=== PATIENT | female | born 1960 | race Caucasian/White ===

== ENCOUNTER → 2017-04-28 | Outpatient (CLI) | payer OTHER, SELFPAY ==
--- NOTE | 2017-04-28 19:38 | REP ---
MAXILLOFACIAL CT WITHOUT CONTRAST: HISTORY: Chronic sinusitis. The sinuses are clear. The ostiomeatal units are patent. The middle and inferior nasal turbinates are partially paradoxical. There is very minimal deviation of the nasal septum to the right. The cribriform plate, medial tran of the orbits and optic canals are intact. The carotid canals form a segment of the posterolateral tran of the sphenoid sinus. IMPRESSION: There is no acute or chronic sinusitis. Signed by Gerard Lutz MD 04/28/2017 07:38 P
== END ==
LOC: M RAD 17:53
PROVIDERS: ATTEND Otolaryngology
DX: J32.4 Chronic pansinusitis (principal)

== ENCOUNTER → 2019-02-07 | Outpatient (REF) | payer OTHER | LOC: M LAB REF 16:42 | PROVIDERS: ATTEND Nurse Practitioner Adult Health | DX: J02.9 Acute pharyngitis, unspecified (principal) ==

== ENCOUNTER → 2019-04-21 | Outpatient (REF) | payer OTHER | LOC: M LAB REF 12:27 | PROVIDERS: ATTEND Physician Assistant | DX: J02.9 Acute pharyngitis, unspecified (principal) ==

== ENCOUNTER 2020-04-29 04:35 | Inpatient (IN) | payer OTHER ==
[~2020-04-29] VITALS: Ht 162.6 cm; Wt 74.9 kg
[2020-04-29] MEDS ORDERED: AMBI5TAB PO (04:44)
[2020-04-29] MEDS ORDERED: BIOT10TA2 PO (04:44)
[2020-04-29] MEDS ORDERED: MULTCAP PO (04:44)
[2020-04-29] MEDS ORDERED: vit b-12 PO (04:44)
[2020-04-29] MEDS ORDERED: TOPI50TA9 PO (04:44)
[2020-04-29] MEDS ORDERED: CETI10CH PO (04:44)
[2020-04-29] MEDS ORDERED: MELA5CAP2 PO (04:44)
[2020-04-29] MEDS ORDERED: CYCL-707 PO (04:44)
[2020-04-29] MEDS ORDERED: CYMB60CA3 PO (04:44)
[2020-04-29] MEDS ORDERED: PHEN30CA2 PO (04:44)
[2020-04-29] MEDS ORDERED: ALLO100T PO (04:44)
[2020-04-29] MEDS ORDERED: MORPHINE 4 MG/ML 1ML VIAL/SYRINGE (J2270) As Ordered ONE (05:50)
[2020-04-29] MEDS ORDERED: ONDANSETRON 4MG/2ML VIAL IV ONE (06:00)
--- NOTE | 2020-04-29 06:07 | HPEPDOC ---
[facility] Medical History & Physical Date of Admission Apr 29, 2020 Date of Service: Apr 29, 2020 Other Provider Kimo Lion Attending Physician: RICARDO DENNY MD History and Physical TIME OF SERVICE: 615am CHIEF COMPLAINT: pain HISTORY OF PRESENT ILLNESS: This 59 yr old F was taking her dogs for a walk this morning when her lab saw a cat and proceeded to run her over while trying to pursue the cat; she walked home and her drove her to the ER because she developed left sided, sharp hip pain that improved a bit after receiving morphine. She denied having chest pain, dizziness or palpitations prior to the fall. At the time of my exam she developed mid 3/10 sharp chest pain which she has never had before. Per the xray showed a left non-displaced intertrochanteric hip fx. REVIEW OF SYSTEMS: 12 point review of systems negative except as listed in HPI PAST MEDICAL/ SURGICAL HISTORY: Asthma ? Gout L kidney atrophy Endometriosis Hx of DM, HTN and Dyslipidemia prior to gastric bypass 10 yrs ago Hysterectomy to manage endometriosis ELIZABETH and LSO Right oophorectomy Appendectomy Lysis of adhesions Tonsillectomy SOCIAL HISTORY: -tobacco /- alcohol FAMILY HISTORY: COPD DM HTN CAD ALLERGIES: Please see below. HOME MEDICATIONS: Please see below. PHYSICAL EXAMINATION: Vital Signs Date Time Temp Pulse Resp B/P (MAP) Pulse Ox O2 Delivery O2 Flow Rate FiO2 04/29/20 04:35 97.6 67 18 120/68 (85) 100 Room Air GENERAL APPEARANCE: well-nourished / well developed / NAD HEENT: EOMI / MMM&P CARDIOVASCULAR: RRR/ NMRG LUNGS: CTAB on RA ABDOMEN: soft & NT MUSCULOSKELETAL: YFN in upper extremities INTEGUMENT: not flushed / no generalized pallor NEUROLOGICAL: CN 2-12 intact /speech not dysarthric PSYCHIATRIC: A&Ox 3 LABORATORY DATA: 04/29/20 06:18 IMAGING: Chest xray report pending Hip xray report pending MICROBIOLOGY: Please see below. ASSESSMENT: is a 59 yr old w a hx of gout who had a fall after her dog ran her over resulting a in a left hip fx. PLAN: 1Left hip fx 2/2 mechanical fall Plan: admit to medical floor / NPO, IVF, morphine w bowel regimen, Ortho consult, PT/OT / day time team to f/u final chest xray and hip xray reports 2. Chest Pain possibly 2/2 anxiety her had a stroke recently and has several follow up appointments this week EKG & Trop unremarkable Plan: f/u 2 more trops 3. Gout Plan: allopurinol 4. Perioperative Eval She walks her dogs and is very active at her job (works at [employer] RCRI score = 0 = no additional testing needed prior to proceeding with surgery. DVT px w SCDS Dispo: likely transfer to ARU after more than 2 midnights stay Home Medications Scheduled Allopurinol (Allopurinol) 100 Mg Tablet, 100 MG PO DAILY Biotin (Biotin) 10 Mg Tablet, 10 MG PO DAILY Cetirizine HCl (Cetirizine HCl) 10 Mg Tab.chew, 10 MG PO QPM Cyclobenzaprine HCl (Cyclobenzaprine HCl) 10 Mg Tablet, 10 MG PO TID Duloxetine Hcl (Cymbalta) 60 Mg Capsule.dr, 60 MG PO QHS TAKE WITH 30MG TO EQUAL 90MG Duloxetine Hcl (Duloxetine HCl) 30 Mg Capsule.dr, 30 MG PO QHS TAKE WITH 60MG TO EQUAL 90MG Multivitamin (Multivitamins) 1 Each Capsule, 2 CAP PO DAILY Phentermine HCl (Phentermine HCl) 30 Mg Capsule, 30 MG PO DAILY Rivaroxaban (Xarelto) 10 Mg Tablet, 10 MG PO DAILY Topiramate (Topiramate) 50 Mg Tablet, 50 MG PO DAILY [vit b-12] , 500 MCG PO DAILY Scheduled PRN Melatonin (Melatonin) 5 Mg Capsule, 5 MG PO QPM PRN for SLEEP Oxycodone HCl/Acetaminophen (Percocet 5-325 mg Tablet) 1 Each Tablet, 1 TAB PO Q4H PRN for PAIN Zolpidem Tartrate (Ambien) 5 Mg Tablet, 5 MG PO QPMP PRN for sleep Allergies Coded Allergies: No Known Allergies (Unverified , 04/29/20) A-FIB/CHADSVASC A-FIB History Current/History of A-Fib/PAF?: No Current PO Anticoag Therapy: No RICARDO DENNY MD Apr 29, 2020 06:07
[2020-04-29] MEDS ORDERED: LR 1,000 ML IV SCH ×3 (06:15→17:45)
[2020-04-29] MEDS ORDERED: DULO30CA9 PO (06:27)
[2020-04-29] MEDS ORDERED: SENOKOT S TAB PO PRN (06:30)
[2020-04-29] MEDS ORDERED: MIRALAX *UNIT DOSE* 17GM PACKET PO PRN (06:30)
[2020-04-29 06:37] LABS: BASO % 0.4 % (0.0-1.0); EOS # 0.1 10^3/uL (0.0-0.5); EOS % 1.8 % (0.0-3.0); HEMATOCRIT 38.1 % (36.0-47.0); HEMOGLOBIN 12.3 g/dl (12.0-15.5); LYMPH # 1.7 10^3/uL (1.5-5.0); LYMPH % 23.5 % (24.0-44.0); MEAN CORPUSCULAR HGB CONC 32.3 g/dl (32.0-36.5); MONO # 0.7 10^3/uL (0.0-0.8); MONO % 8.8 % (0.0-5.0); NEUTROPHILS # 4.8 10^3/uL (1.5-8.5); NEUTROPHILS % 64.7 % (36.0-66.0); PLATELET COUNT, AUTOMATED 255 10^3/uL (150-450); RED BLOOD COUNT 3.97 10^6/uL (4.00-5.40); WHITE BLOOD COUNT 7.4 10^3/uL (4.0-10.0)
[2020-04-29 06:40] LABS: INR 0.89; PROTHROMBIN TIME 12.3 SECONDS (11.8-14.0)
[2020-04-29 06:41] LABS: PARTIAL THROMBOPLASTIN TIME 24.4 SECONDS (25.0-38.4)
[2020-04-29] MEDS: MORPHINE 4 MG/ML 1ML VIAL/SYRINGE (J2270) IV PRN ×2 (06:43→08:20)
[2020-04-29 06:53] LABS: BLOOD UREA NITROGEN 16 MG/DL (7-18); CALCIUM LEVEL 9.1 MG/DL (8.8-10.2); CARBON DIOXIDE LEVEL 28 MEQ/L (21-32); CHLORIDE LEVEL 111 MEQ/L (98-107); CREATININE FOR GFR 0.84 MG/DL (0.55-1.30); GLOMERULAR FILTRATION RATE > 60.0 (>45); GLUCOSE, FASTING 107 MG/DL (70-100); POTASSIUM SERUM 3.7 MEQ/L (3.5-5.1); SODIUM LEVEL 143 MEQ/L (136-145); TROPONIN I < 0.02 NG/ML (< 0.10)
[2020-04-29] MEDS ORDERED: ONDANSETRON 4MG/2ML VIAL IV PRN ×2 (07:00→16:45)
[2020-04-29] MEDS ORDERED: ceFAZolin SOD 2 GM in IV 1 EA IV ONE (08:00)
[2020-04-29] MEDS: CYCLOBENZAPRINE 10MG TABLET PO SCH ×3 (09:00→20:31)
[2020-04-29] MEDS ORDERED: PHENTERMINE 30 MG PO SCH (09:00)
[2020-04-29 09:30] VITALS: BP 115/74
[2020-04-29] MEDS: allopurinoL 100 MG TAB PO SCH (11:18)
[2020-04-29] MEDS ORDERED: BUPIVACAINE/EPIN 0.25% 30 ML VIAL As Ordered ONE (12:02)
[2020-04-29] MEDS ORDERED: ceFAZolin 1GM VIAL (J0690 PER 500MG) As Ordered ONE (12:02)
[2020-04-29] MEDS: MORPHINE 2 MG/ML 1ML VIAL (J2270) IV PRN (12:25)
[2020-04-29] MEDS ORDERED: ROCURONIUM BROMIDE 50 MG/5 ML VIAL As Ordered ONE (12:32)
[2020-04-29] MEDS ORDERED: propofoL 200 MG/20 ML VIAL As Ordered ONE (12:32)
[2020-04-29] MEDS ORDERED: LIDOCAINE 2% 100MG/5ML SDV (FOR ANES.) As Ordered ONE (12:32)
[2020-04-29] MEDS ORDERED: dexameTHASONE 4 MG/ML 1ML VIAL (J1100 PER 1MG) As Ordered ONE (12:32)
[2020-04-29] MEDS ORDERED: fentaNYL 250 MCG/5 ML INJECTION (J3010) As Ordered ONE (12:33)
[2020-04-29] MEDS ORDERED: MIDAZOLAM INJ 2MG/2ML VIAL (J2250 PER 1MG) As Ordered ONE (12:33)
[2020-04-29] MEDS ORDERED: SEVOFLURANE INHAL SOLN 250 ML BTL As Ordered ONE (12:36)
[2020-04-29] MEDS ORDERED: ceFAZolin 2 GM/D5W 50 ML IV BAG (J0690 PER 500MG) As Ordered ONE (13:26)
[2020-04-29] MEDS ORDERED: BUPIVACAINE HCL 0.5% 30 ML VIAL As Ordered ONE (13:45)
--- NOTE | 2020-04-29 14:33 | IPNPDOC ---
Text Note Date of Service The patient was seen on 04/29/20. NOTE HPI: Patient is a 59 yo F seen in the ED awaiting admission for a fractured left hip. Patient was brought to the ED early this morning by her after an incident while walking her dog where she was pulled to the ground and dragged by the dog. Patient described hip pain that was worse upon trying to ambulate. SUBJECTIVE: Pt states she is comfortable and her pain is tolerable now that she has received pain medication. Abrasions noted on her right palm, left shoulder, and left elbow. Patient denies any chest pain, fever, chills, nausea, vomiting, pain in any other extremity, head trauma, loss of consciousness, or headache. OBJECTIVE: VITAL SIGNS: please see below GENERAL: Patient appears lying in bed, pleasant, and in no acute distress. HEENT: NC, AT, EOMI, no scleral icterus, no pharyngeal erythema, mucous membranes moist NECK: no lymphadenopathy or JVD appreciated CV: RRR, normal S1 and S2, no murmurs, gallops, or rubs. RESP: CTAB with full breath sounds. No wheezes, crackles, or rhonchi. ABDOMEN: soft, non tender, non distended, bowel sounds present. EXTREMITIES: abrasions on right palm, left shoulder, and left elbow, but non- tender to palpation. Full ROM in affected joints. Pain in left hip, no swelling or edema in any extremity, pedal pulses +2/4 bilaterally LABORATORY: please see below MICROBIOLOGY: please see below IMAGING: ASSESSMENT/PLAN: Mrs. Goodson is a 59 yr old female without significant PMHx who presented with acute left hip pain and found to have a left nondisplaced intertrochanteric hip fx. #. Left nondisplaced intertrochanteric hip fx -Follow as per surgery and ortho -Activity, pain control as per ortho -RCRI score of 0, no other testing required. Patient able to complete 4 mets. No history of adverse reactions to anesthesia. Patient is low risk for low-medium risk procedure. Patient is medically optimized. #. Transient chest pain -tropsx2 negative, no EKG changes #. Gout -Continue allopurinol #. Depression -Continue Cymbalta #. Insomnia Continue ambien #. Constipation -Pt is on Miralax and Senokot #. Msk pain -Continue home Flexeril #. Weight control -Continue topomax, Phentermine DVT Prophylaxis: Per ortho, Xarelto, TEDs VS,Fishbone, I+O VS, Fishbone, I+O Laboratory Tests 04/29/20 06:18 Vital Signs Date Time Temp Pulse Resp B/P (MAP) Pulse Ox O2 Delivery O2 Flow Rate FiO2 04/29/20 12:35 16 04/29/20 09:30 98.9 82 115/74 (88) 96 Room Air GME ATTESTATION GME ATTESTATION My faculty preceptor for this patient encounter was physically present during the encounter and was fully available. All aspects of the patient interview, examination, medical decision making process, and medical care plan development were reviewed and approved by the faculty preceptor. The faculty preceptor is aware and concurs with the plan as stated in the body of this note and will attest to such by his/her cosignature. ATTENDING NOTE Patient was seen and examined by me personally with the residents and I agree with the above assessment and plan ANDREW DENNISON S-3 Apr 29, 2020 14:33 AARON GALINDO MD May 02, 2020 13:48
[2020-04-29] MEDS ORDERED: ePHEDrine SULFATE 25 MG/5 ML(5MG/ML) SYRINGE As Ordered ONE (14:36)
[2020-04-29] MEDS ORDERED: ONDANSETRON 4MG/2ML VIAL As Ordered ONE (14:44)
[2020-04-29] MEDS ORDERED: ACETAMINOPHEN 1000MG 100ML IV BTL (OFIRMEV) (J0131 PER 10MG) As Ordered ONE (14:44)
[2020-04-29] MEDS ORDERED: PHENYLephrine HCL 500 MCG/5 ML (100MCG/ML) SYRINGE (J2370) As Ordered ONE (14:57)
[2020-04-29] MEDS ORDERED: oxyCODONE 5MG TAB As Ordered ONE ×2 (16:01→16:33)
[2020-04-29] MEDS: oxyCODONE 5MG TAB PO PRN ×2 (16:04→16:36)
[2020-04-29 16:45] VITALS: BP 130/71
[2020-04-29] MEDS ORDERED: METOCLOPRAMIDE INJ 10MG/2ML VIAL (J2765 PER 1) IV PRN (16:45)
[2020-04-29] MEDS ORDERED: fentaNYL 100 MCG/2 ML INJECTION (J3010) IV PRN (16:45)
[2020-04-29] MEDS ORDERED: MEPERIDINE INJ 25 MG/ML VIAL (J2175) IV PRN (16:45)
[2020-04-29 17:15] VITALS: BP 145/80
[2020-04-29] MEDS ORDERED: PERCOCET 5MG/325MG TAB PO PRN (17:45)
[2020-04-29 18:14] VITALS: BP 144/80
[2020-04-29 18:57] VITALS: BP 134/80
[2020-04-29 20:15] VITALS: BP 148/80
[2020-04-29] MEDS: TOPIRAMATE (TopAMAX) 25 MG TAB PO SCH (20:30)
[2020-04-29] MEDS: PERCOCET 5MG/325MG TAB PO PRN (20:30)
[2020-04-29] MEDS: CETIRIZINE (ZyrTEC) 10 MG TAB PO SCH (20:31)
[2020-04-29] MEDS: DULoxetine 30 MG CAP (CYMBALTA) PO SCH (20:31)
[2020-04-29] MEDS: ceFAZolin SOD 2 GM in IV 1 EA IV SCH (20:31)
[2020-04-29] MEDS ORDERED: DULoxetine 30 MG CAP (CYMBALTA) PO SCH (21:00)
[2020-04-30] MEDS: MORPHINE 2 MG/ML 1ML VIAL (J2270) IV PRN (01:38)
[2020-04-30 02:00] VITALS: BP 155/71
[2020-04-30] MEDS: PERCOCET 5MG/325MG TAB PO PRN ×5 (02:37→22:23)
[2020-04-30] MEDS: ceFAZolin SOD 2 GM in IV 1 EA IV SCH (05:56)
[2020-04-30 06:00] VITALS: BP 119/64
[2020-04-30 07:18] LABS: HEMATOCRIT 31.6 % (36.0-47.0); HEMOGLOBIN 10.4 g/dl (12.0-15.5); MEAN CORPUSCULAR HEMOGLOBIN 31.5 pg (27.0-33.0); MEAN CORPUSCULAR HGB CONC 32.9 g/dl (32.0-36.5); MEAN CORPUSCULAR VOLUME 95.8 fl (80.0-96.0); PLATELET COUNT, AUTOMATED 196 10^3/uL (150-450); WHITE BLOOD COUNT 9.6 10^3/uL (4.0-10.0)
[2020-04-30 07:32] LABS: BLOOD UREA NITROGEN 12 MG/DL (7-18); CALCIUM LEVEL 8.5 MG/DL (8.8-10.2); CARBON DIOXIDE LEVEL 27 MEQ/L (21-32); CHLORIDE LEVEL 107 MEQ/L (98-107); CREATININE FOR GFR 0.71 MG/DL (0.55-1.30); GLOMERULAR FILTRATION RATE > 60.0 (>45); GLUCOSE, FASTING 103 MG/DL (70-100); POTASSIUM SERUM 3.9 MEQ/L (3.5-5.1); SODIUM LEVEL 141 MEQ/L (136-145)
[2020-04-30] MEDS: allopurinoL 100 MG TAB PO SCH (08:28)
[2020-04-30] MEDS: CYCLOBENZAPRINE 10MG TABLET PO SCH ×3 (08:28→20:29)
[2020-04-30] MEDS: MOM 30ML SUSPENSION UDC PO SCH (08:28)
[2020-04-30 10:00] VITALS: BP 121/64
[2020-04-30 14:00] VITALS: BP 139/64
--- NOTE | 2020-04-30 16:00 | IPNPDOC ---
Text Note Date of Service The patient was seen on 04/30/20. NOTE HPI: Pt is a 59 yr old female admitted from the ED after suffering a left nond isplaced intertrochanteric hip fracture while walking her dog. SUBJECTIVE: Pt is s/p left hip repair surgery. She states that she is comfortable and that the surgery went well. She notes some increased musculoskeletal pain in her left arm and pectoral areas but that this is likely just the aftermath of the fall she took. Pt states that her pain is well controlled on the medications that she is currently on. Although she was started on 2L oxygen nasal cannula last night, she denies any shortness of breath or cough. The decreased O2 sats were likely due to the head of her bed being lower than her feet, creating an obstruction. She also denies any chest tightness, fever, chills, nausea, or vomiting. OBJECTIVE: VITAL SIGNS: Please see below. GENERAL: Patient appears resting comfortably in bed in no acute distress. HEENT: NC, AT, EOMI, no scleral icterus, no pharyngeal erythema, mucous membranes moist. NECK: no lymphadenopathy or JVD appreciated. CV: RRR, normal S1 and S2, no murmurs, rubs, or gallops. RESP: CTAB with full breath sounds, no wheezes, crackles or rhonchi. EXTREMITIES: Pain in left hip, no swelling or edema in any extremity, pedal pulses +2/4 bilaterally. LABORATORY: Please see below. MICROBIOLOGY: Please see below. ASSESSMENT/PLAN: Mrs. Goodson is a 59 yr old female without significant PMHx who presented with acute left hip pain and was found to have a left nondisplaced intertrochanteric hip fracture and is now s/p surgical repair. #. Left nondisplaced intertrochanteric hip fx s/p surgical repair -Follow as per surgery and ortho -Pain control as per ortho -PT/OT did not clear for discharge, they anticipate 1-2 more sessions before she will be safe to go home -Received Cefazolin as infection prophylaxis #. Transient chest pain -Trops x2 negative, no EKG changes #. Gout -Continue Allopurinol #.Depression -Continue Cymbalta #. Insomnia -Continue Ambien #.Constipation -Pt is on Miralax, Senokot, and Milk of Magnesia #. MSK pain -Continue home Flexeril #. Weight control -Continue Topamax DVT Prophylaxis: Per ortho, Xarelto and TEDs VS,Fishbone, I+O VS, Fishbone, I+O Laboratory Tests 04/30/20 06:20 Vital Signs Date Time Temp Pulse Resp B/P (MAP) Pulse Ox O2 Delivery O2 Flow Rate FiO2 04/30/20 14:17 18 04/30/20 14:00 98.9 91 139/64 (89) 99 Room Air 04/30/20 10:00 2.0 I&O- Last 24 Hours up to 6 AM 04/30/20 06:00 Intake Total 2695 ml Output Total 1300 ml Balance 1395 ml GME ATTESTATION GME ATTESTATION My faculty preceptor for this patient encounter was physically present during the encounter and was fully available. All aspects of the patient interview, examination, medical decision making process, and medical care plan development were reviewed and approved by the faculty preceptor. The faculty preceptor is aware and concurs with the plan as stated in the body of this note and will attest to such by his/her cosignature. ATTENDING NOTE Patient was seen and examined by me personally with the residents and I agree with the above assessment and plan ANDREW DENNISON OMS-3 Apr 30, 2020 16:00 AARON GALINDO MD May 02, 2020 13:49
[2020-04-30] MEDS ORDERED: PERCOCET 5MG/325MG TAB PO PRN (17:45)
[2020-04-30] MEDS ORDERED: KETOROLAC 30 MG/ML 1ML VIAL IV ONE (17:45)
[2020-04-30] MEDS: RIVAROXABAN 10 MG TAB (XARELTO) PO SCH (17:57)
[2020-04-30] MEDS: DULoxetine 30 MG CAP (CYMBALTA) PO SCH (20:28)
[2020-04-30] MEDS: CETIRIZINE (ZyrTEC) 10 MG TAB PO SCH (20:28)
[2020-04-30] MEDS: TOPIRAMATE (TopAMAX) 25 MG TAB PO SCH (20:29)
[2020-04-30 22:00] VITALS: BP 130/63
[2020-04-30] MEDS: zolPIDEM TARTRATE 5 MG TAB PO PRN (22:23)
[2020-05-01 06:00] VITALS: BP 145/87
[2020-05-01] MEDS: PERCOCET 5MG/325MG TAB PO PRN ×4 (06:52→22:20)
[2020-05-01] MEDS: CYCLOBENZAPRINE 10MG TABLET PO SCH ×3 (08:18→22:19)
[2020-05-01] MEDS: MOM 30ML SUSPENSION UDC PO SCH (08:18)
[2020-05-01] MEDS: allopurinoL 100 MG TAB PO SCH (08:18)
[2020-05-01 14:00] VITALS: BP 142/86
--- NOTE | 2020-05-01 15:13 | IPNPDOC ---
Text Note Date of Service The patient was seen on 05/01/20. NOTE HPI: Pt is a 59 yr old female admitted from the ED after suffering a left nondisplaced intertrochanteric hip fracture while walking her dog. SUBJECTIVE: No acute events overnight. Patient states pain well controlled on medication. She denies any chest pain, SOB, fever, chills, nausea, or vomiting. OBJECTIVE: VITAL SIGNS: Please see below. GENERAL: NAD HEENT: NC, AT, EOMI, no scleral icterus, no pharyngeal erythema, mucous membranes moist. NECK: no lymphadenopathy or JVD appreciated. CV: RRR, normal S1 and S2, no murmurs, rubs, or gallops. RESP: CTAB with full breath sounds, no wheezes, crackles or rhonchi. EXTREMITIES: tenderness to in left hip, no swelling or edema in any extremity LABORATORY: Please see below. MICROBIOLOGY: Please see below. ASSESSMENT/PLAN: Mrs. Goodson is a 59 yr old female without significant PMHx who presented with acute left hip pain and was found to have a left nondisplaced intertrochanteric hip fracture and is now s/p surgical repair. #. Left nondisplaced intertrochanteric hip fx s/p surgical repair on 04/29 -Follow as per surgery and ortho -Pain control as per ortho -ARU admission screening yesterday per ortho acute vs. subacute rehab. -Received Cefazolin as infection prophylaxis #. Transient chest pain -Trops x2 negative, no EKG changes #. Gout -Continue Allopurinol #.Depression -Continue Cymbalta #. Insomnia -Continue Ambien #.Constipation -Pt is on Miralax, Senokot, and Milk of Magnesia #. MSK pain -Continue home Flexeril #. Weight control -Continue Topamax DVT Prophylaxis: Per ortho, Xarelto and TEDs VS,Fishbone, I+O VS, Fishbone, I+O Vital Signs Date Time Temp Pulse Resp B/P (MAP) Pulse Ox O2 Delivery O2 Flow Rate FiO2 05/01/20 14:10 99.4 05/01/20 14:00 104 18 142/86 (104) 93 Room Air 04/30/20 10:00 2.0 I&O- Last 24 Hours up to 6 AM 05/01/20 06:00 Intake Total 1980 ml Output Total 500 ml Balance 1480 ml GME ATTESTATION GME ATTESTATION My faculty preceptor for this patient encounter was physically present during the encounter and was fully available. All aspects of the patient interview, examination, medical decision making process, and medical care plan development were reviewed and approved by the faculty preceptor. The faculty preceptor is aware and concurs with the plan as stated in the body of this note and will attest to such by his/her cosignature. ATTENDING NOTE Patient was seen and examined by me personally with the residents and I agree with the above assessment and plan ELVIS GRAVES DO May 01, 2020 15:13 AARON GALINDO MD May 02, 2020 13:51
[2020-05-01] MEDS: RIVAROXABAN 10 MG TAB (XARELTO) PO SCH (17:00)
[2020-05-01 22:00] VITALS: BP 141/82
[2020-05-01] MEDS: TOPIRAMATE (TopAMAX) 25 MG TAB PO SCH (22:18)
[2020-05-01] MEDS: CETIRIZINE (ZyrTEC) 10 MG TAB PO SCH (22:18)
[2020-05-01] MEDS: DULoxetine 30 MG CAP (CYMBALTA) PO SCH (22:19)
[2020-05-01] MEDS: zolPIDEM TARTRATE 5 MG TAB PO PRN (22:19)
[2020-05-02] MEDS: PERCOCET 5MG/325MG TAB PO PRN ×2 (05:11→11:34)
[2020-05-02 06:00] VITALS: BP 144/82
[2020-05-02] MEDS ORDERED: PERC5TAB12 PO (06:32)
[2020-05-02] MEDS ORDERED: XARE10TA PO (06:32)
[2020-05-02 07:06] LABS: HEMATOCRIT 32.9 % (36.0-47.0); HEMOGLOBIN 10.6 g/dl (12.0-15.5); MEAN CORPUSCULAR HEMOGLOBIN 30.9 pg (27.0-33.0); MEAN CORPUSCULAR HGB CONC 32.2 g/dl (32.0-36.5); MEAN CORPUSCULAR VOLUME 95.9 fl (80.0-96.0); PLATELET COUNT, AUTOMATED 201 10^3/uL (150-450); RED BLOOD COUNT 3.43 10^6/uL (4.00-5.40); WHITE BLOOD COUNT 8.3 10^3/uL (4.0-10.0)
[2020-05-02 07:35] LABS: BLOOD UREA NITROGEN 12 MG/DL (7-18); CALCIUM LEVEL 8.9 MG/DL (8.8-10.2); CARBON DIOXIDE LEVEL 27 MEQ/L (21-32); CHLORIDE LEVEL 107 MEQ/L (98-107); CREATININE FOR GFR 0.62 MG/DL (0.55-1.30); GLOMERULAR FILTRATION RATE > 60.0 (>45); GLUCOSE, FASTING 113 MG/DL (70-100); POTASSIUM SERUM 3.5 MEQ/L (3.5-5.1); SODIUM LEVEL 141 MEQ/L (136-145)
[2020-05-02] MEDS: allopurinoL 100 MG TAB PO SCH (08:44)
[2020-05-02] MEDS: MOM 30ML SUSPENSION UDC PO SCH (08:44)
[2020-05-02] MEDS: CYCLOBENZAPRINE 10MG TABLET PO SCH (08:44)
--- NOTE | 2020-05-14 16:00 | ECGEPIP ---
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
--- NOTE | 2020-05-22 10:34 | RO ---
DATE OF OPERATION: 04/29/2020 PREOPERATIVE DIAGNOSIS: Nondisplaced left proximal femur fracture. POSTOPERATIVE DIAGNOSIS: Nondisplaced left proximal femur fracture. PROCEDURE: Closed reduction, internal fixation of left femur with a cephalomedullary nail. SURGEON: Dr. Nestor Bowen ENGINEERING LABORATORY TECHNICIAN: None. ANESTHESIA: Spinal. IV FLUIDS: Lactated Ringer's. ESTIMATED BLOOD LOSS: 100 mL. IMPLANTS: Synthes TFN intermediate length with a 130 degree neck angle, and a 90 mm helical blade, and a 36 mm distal interlocking screw. CLOSURE: Ankur. INDICATIONS: The patient had suffered a mechanical fall and x-rays at [facility] revealed nondisplaced basocervical hip fracture on the left side. She was admitted to the hospitalist service and medically optimized. I discussed the risks and benefits of closed versus open reduction and internal fixation of the left femur with the patient and written informed consent was obtained. PROCEDURE: Patient was identification in the preoperative holding area. The left hip was signed. She was brought to the operating room where spinal anesthesia was induced. She was then placed supine on a well-padded radiolucent fracture table and sedation initiated. She was secured to the fracture table. The left leg was placed into the traction boot and the well leg was secured to the central beam of the fracture table well padded in a scissored position. She had an SDC on the right lower extremity for DVT prophylaxis. A preliminary timeout performed per hospital protocol. Closed reduction with manipulation was then performed by adducting and internally rotating slightly the left foot. An excellent reduction was obtained and confirmed on AP, lateral and oblique views of the large C-arm. She had received appropriate IV antibiotics within one hour of incision. The left leg was prepped and draped in the normal sterile fashion with ChloraPrep and a shower-curtain drape. A timeout was repeated. The tip of the greater trochanter was localized with fluoroscopy and then a 4 cm incision made with a 10 blade from the tip of the trochanter extending proximally. Hemostasis obtained with electrocautery. Dissection down the tensor fascia britney with curved Roberts scissors. The deep fascia was then opened carefully with the curved scissors and I was able to palpate the tip of the trochanter. A threaded guidewire was then advanced from the tip of the trochanter to the left trochanter and appropriate position confirmed on AP and lateral views of the large C-arm. The opening reamer was then used. I then irrigated. Ball-tip guidewire was placed through the opening down to the distal femur and a 12.5 mm reamer was used. I then selected a 130 degree neck angle intermediate length TFN. This was attached to the long distance operator and this was placed over the guidewire mostly by hand and then malleted to the appropriate depth. Appropriate position confirmed on AP and lateral views at the hip and tip of the nail. After malleting the racquel to the appropriate depth, the targeting arm was used to advance a threaded guidewire along the femoral neck up to the femoral head. Appropriate position was confirmed on AP and lateral views with the large C-arm. A 90 mm helical blade was found to be the most appropriate length and then the reamer was placed over the guidewire and then removed. A 90 mm helical blade was malleted over the threaded guidewire to the appropriate depth and this was in the center-center position on AP and lateral views. The nail was then locked proximally. I then drilled and placed a 36 mm distal locking screw through the static slot with the appropriate targeting arm and trocars. This had bicortical fixation. All instrumentation was removed and final x-rays at the AP and lateral at the hip, fracture, tip of the nail, and knee were obtained showing a well- reduced and fixated fracture. The incisions were then extensively irrigated and then close din a layered fashion; 0 Vicryl for deep fascia, 2-0 Vicryl and ankur. Bulky sterile dressing applied. Drapes were taken down, all counts were correct x2, complications none, and she was transferred to the PACU in stable condition. JOSHUA
--- NOTE | 2020-05-24 16:06 | REP ---
CHEST X-RAY CLINICAL: Preoperative assessment. FINDINGS: Mediastinum and cardiac silhouette normal. Lung brown clear without focal consolidation, effusion, or pneumothorax. Skeletal structures are intact. IMPRESSION: Normal chest x-ray. No acute cardiopulmonary process. MTDD
--- NOTE | 2020-05-24 16:07 | REP ---
LEFT HIP SERIES: CLINICAL: Fall. TECHNIQUE: Frontal view of the pelvis with neutral and frog lateral views of the left hip. FINDINGS: The pelvis appears intact. The left hip demonstrates no definite acute fracture or dislocation. However, a subtle nondisplaced intertrochanteric fracture cannot be excluded based on external rotation view. Clinical correlation is recommended and CT may be warranted for further investigation. IMPRESSION: Cannot definitively exclude a subtle nondisplaced intertrochanteric left hip fracture. Consider CT of the pelvis for further investigation. MTDD
--- NOTE | 2020-05-24 16:08 | REP ---
FLUORO GUIDANCE CLINICAL: Status post fracture fixation. TECHNIQUE: Intraoperative fluoroscopic imaging using portable C-arm technique. FINDINGS: Multiple images demonstrate the patient to be status post open reduction and fixation for a femoral fracture. Total fluoroscopic time 2 minutes 8 seconds. IMPRESSION: Satisfactory open reduction and fixation for femur fracture. MTDMaryam
--- NOTE | 2020-05-24 16:09 | REP ---
LEFT HIP SERIES CLINICAL: Postoperative baseline. TECHNIQUE: AP and lateral views of the left hip. FINDINGS: Satisfactory open reduction and fixation for left intertrochanteric hip fracture. Overlying postsurgical changes noted. IMPRESSION: Satisfactory open reduction and fixation. JOSHUA
== END 2020-05-02 13:41 | disposition home or self-care (01) | DRG 308 ==
LOC: M ED 04:35 → M ED INP 06:14 → ENRESERV 07:31 → M MS5PR 09:10
PROVIDERS: ADMIT Internal Medicine; ATTEND Internal Medicine
PROC: 0QS734Z Reposition Left Upper Femur with Internal Fixation Device, Percutaneous Approach (ICD-10-PCS; principal; 2020-04-29 08:49)
DX: S72.142A Displaced intertrochanteric fracture of left femur, initial encounter for closed fracture (principal); J45.909 Unspecified asthma, uncomplicated; E11.9 Type 2 diabetes mellitus without complications; M10.9 Gout, unspecified; I10 Essential (primary) hypertension; E78.5 Hyperlipidemia, unspecified; F41.9 Anxiety disorder, unspecified; Z79.899 Other long term (current) drug therapy; W01.0XXA Fall on same level from slipping, tripping and stumbling without subsequent striking against object, initial encounter; Y92.9 Unspecified place or not applicable; R07.9 Chest pain, unspecified; G47.00 Insomnia, unspecified; F32.9 Major depressive disorder, single episode, unspecified

== ENCOUNTER 2020-05-18 19:49 | Emergency (ER) | payer OTHER ==
[~2020-05-18] VITALS: Ht 162.6 cm; Wt 67.7 kg
[~2020-05-18 19:49] MED LIST: ALLO100T PO; AMBI5TAB PO; BIOT10TA2 PO; CETI10CH PO; CYCL-707 PO; CYMB60CA3 PO; DULO30CA9 PO; MELA5CAP2 PO; MULTCAP PO; PERC5TAB12 PO; PHEN30CA2 PO; TOPI50TA9 PO; XARE10TA PO; vit b-12 PO
[2020-05-18 20:45] LABS: BASO % 0.1 % (0.0-1.0); EOS % 0.3 % (0.0-3.0); HEMATOCRIT 38.5 % (36.0-47.0); HEMOGLOBIN 12.3 g/dl (12.0-15.5); LYMPH # 0.6 10^3/uL (1.5-5.0); LYMPH % 4.5 % (24.0-44.0); MEAN CORPUSCULAR HEMOGLOBIN 30.7 pg (27.0-33.0); MEAN CORPUSCULAR HGB CONC 31.9 g/dl (32.0-36.5); MONO # 0.2 10^3/uL (0.0-0.8); MONO % 1.4 % (0.0-5.0); NEUTROPHILS # 13.3 10^3/uL (1.5-8.5); NEUTROPHILS % 93.3 % (36.0-66.0); PLATELET COUNT, AUTOMATED 494 10^3/uL (150-450); RED BLOOD COUNT 4.01 10^6/uL (4.00-5.40); WHITE BLOOD COUNT 14.3 10^3/uL (4.0-10.0)
[2020-05-18] MEDS ORDERED: ACETAMINOPHEN *IV* 1,000 MG in IV 1 EA IV ONE (20:45)
[2020-05-18] MEDS ORDERED: GASTROGRAFIN SOLUTION 30ML PO SCH (20:50)
[2020-05-18 20:55] LABS: INR 0.87; PROTHROMBIN TIME 12.1 SECONDS (12.5-14.3)
[2020-05-18] MEDS ORDERED: ONDANSETRON 4MG/2ML VIAL IV ONE (21:45)
[2020-05-18] MEDS: MORPHINE 4 MG/ML 1ML VIAL/SYRINGE (J2270) IV PRN (21:50)
[2020-05-18 21:51] LABS: ALBUMIN 3.8 GM/DL (3.2-5.2); ALT/SGPT 327 U/L (12-78); BILIRUBIN,DIRECT 0.7 MG/DL (0.0-0.2); CK-MB VALUE MASS < 1.0 NG/ML (<3.6); CPK CREATINE PHOSPHOKINASE 36 U/L (26-192); LIPASE 43978 U/L (73-393); MB/CK RELATIVE INDEX 2.78 (< OR =4); TOTAL PROTEIN 7.5 GM/DL (6.4-8.2); TROPONIN I < 0.02 NG/ML (< 0.10)
[2020-05-18] MEDS ORDERED: ALBUTEROL SULFATE 2.5 MG/0.5 ML INH NEB SOLN INH ONE (22:00)
[2020-05-18] MEDS ORDERED: ISOVUE-370 76% 100ML VIAL As Ordered ONE (22:24)
--- NOTE | 2020-05-19 00:35 | REPVR ---
PROCEDURE INFORMATION: Exam: US Abdomen, Limited; Right Upper Quadrant Exam date and time: 05/18/2020 12:26 AM Age: 59 years old Clinical indication: Abdominal pain; Epigastric; Additional info: Upper abd pain, elevated liver enzymes TECHNIQUE: Imaging protocol: US abdomen. Real time ultrasound with image documentation. Limited exam focused on the right upper quadrant. COMPARISON: No relevant prior studies available. FINDINGS: Liver: No focal hepatic abnormality. Gallbladder: Distended gallbladder with multiple small gallstones. Gallbladder wall measures 2 mm. Greek Professor reports a positive ultrasonographic Mccormack's. Common bile duct: Dilated common bile duct measuring up to 9 mm. There is intrahepatic biliary dilatation. Pancreas: No gross focal abnormality involving the visualized portions of the pancreas. Right kidney: Right kidney measures 12.6 cm and is without hydronephrosis. Simple cyst at the superior right kidney measures up to 1.3 cm. IMPRESSION: 1. Distended gallbladder with cholelithiasis. Gallbladder measures 2 mm, within normal limits however grizzlyman reports a positive ultrasonographic Mccormack's sign. 2. Intra and extrahepatic biliary dilatation. Common bile duct measures 9 mm. COMMENTS: Consistent with the [employer]'s Incidental Findings Committee white paper (J Am Fernando Radiol 2018): Any incidental renal lesion less than 1 cm or classified as too small to characterize, or any incidental cystic renal lesion characterized as simple-appearing, is likely benign. No follow-up imaging is recommended for these lesions per consensus recommendations based on imaging criteria. Electronically signed by: Wellington Meyer On 05/19/2020 00:34:47 AM
--- NOTE | 2020-05-19 00:38 | REPVR ---
PROCEDURE INFORMATION: Exam: CT Angiography Chest With Contrast Exam date and time: 05/18/2020 12:28 AM Age: 59 years old Clinical indication: Chest pain; Additional info: Chest pain/abd pain, recent extremity fracture, HX bypass TECHNIQUE: Imaging protocol: Computed tomographic angiography of the chest with intravenous contrast. 3D rendering (Not supervised by radiologist): MIP and/or 3D reconstructed images were created by the technologist. Radiation optimization: All CT scans at this facility use at least one of these dose optimization techniques: automated exposure control; mA and/or kV adjustment per patient size (includes targeted exams where dose is matched to clinical indication); or iterative reconstruction. Contrast material: ISOVUE 370; Contrast volume: 100 ml; Contrast route: INTRAVENOUS (IV); COMPARISON: No relevant prior studies available. FINDINGS: Pulmonary arteries: Normal. No pulmonary emboli. Aorta: Unremarkable. No aortic aneurysm. No aortic dissection. Lungs: There are bilateral posterior dependent changes. Mild linear atelectasis or scarring with basilar predominance. No consolidation to indicate pneumonia. Pleural space: Unremarkable. No pneumothorax. No pleural effusion. Heart: Unremarkable. No cardiomegaly. No pericardial effusion. Lymph nodes: Unremarkable. No enlarged lymph nodes. Bones/joints: Unremarkable. No acute fracture. Soft tissues: Unremarkable. IMPRESSION: No evidence of pulmonary embolus or other acute thoracic abnormality. Electronically signed by: Wellington Meyer On 05/19/2020 00:38:11 AM
--- NOTE | 2020-05-19 00:42 | REPVR ---
PROCEDURE INFORMATION: Exam: CT Abdomen And Pelvis With Contrast Exam date and time: 05/18/2020 12:28 AM Age: 59 years old Clinical indication: Abdominal pain; Generalized; Additional info: Chest pain/abd pain, recent extremity fracture, HX bypass TECHNIQUE: Imaging protocol: Computed tomography of the abdomen and pelvis with intravenous contrast. Radiation optimization: All CT scans at this facility use at least one of these dose optimization techniques: automated exposure control; mA and/or kV adjustment per patient size (includes targeted exams where dose is matched to clinical indication); or iterative reconstruction. Contrast material: ISOVUE 370; Contrast volume: 100 ml; Contrast route: INTRAVENOUS (IV); COMPARISON: GALLBLADDER US 05/18/2020 11:57 PM FINDINGS: Liver: Normal. No mass. Gallbladder and bile ducts: There is intrahepatic and extrahepatic biliary dilatation. The common bile duct measures up to 9 mm. Gallbladder is distended. Pancreas: There are infiltrative changes about the pancreas. No pancreatic fluid collection. Spleen: Normal. No splenomegaly. Adrenals: Normal. No mass. Kidneys and ureters: Atrophic left kidney. 1 cm left renal calculus. Simple right renal cyst measuring 1.3 cm, no follow-up recommended. Stomach and bowel: Gastric postoperative change. Diverticulosis without diverticulitis. Appendix: No evidence of appendicitis. Intraperitoneal space: Unremarkable. No free air. No significant fluid collection. Vasculature: Unremarkable. No abdominal aortic aneurysm. Lymph nodes: Unremarkable. No enlarged lymph nodes. Bladder: Unremarkable as visualized. Reproductive: Previous hysterectomy. Bones/joints: Postoperative change involving the proximal left femur. Healing fracture of the proximal left femur. Soft tissues: Unremarkable. IMPRESSION: 1. Peripancreatic infiltrative changes compatible with acute pancreatitis. No drainable fluid collection. 2. Severe gallbladder distension. Gallstones are better demonstrated on ultrasound. 3. Intrahepatic and extrahepatic biliary dilatation with common bile duct measuring up to 9 mm. COMMENTS: Consistent with the [employer]'s Incidental Findings Committee white paper (J Am Fernando Radiol 2018): Any incidental renal lesion less than 1 cm or classified as too small to characterize, or any incidental cystic renal lesion characterized as simple-appearing, is likely benign. No follow-up imaging is recommended for these lesions per consensus recommendations based on imaging criteria. Electronically signed by: Wellington Meyer On 05/19/2020 00:42:20 AM
[2020-05-19] MEDS ORDERED: PIPERACILLIN/TAZOBACTAM SOD 3.375 GM in D5W MINI-BAG PLUS 50 ML IV ONE (01:00)
[2020-05-19] MEDS ORDERED: NS 1,000 ML IV ONE (01:15)
[2020-05-19 01:32] VITALS: BP 118/58
[2020-05-19] MEDS: MORPHINE 4 MG/ML 1ML VIAL/SYRINGE (J2270) IV PRN (01:32)
--- NOTE | 2020-05-19 13:56 | ECGEPIP ---
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
== END 2020-05-19 02:52 | disposition short-term general hospital (02) ==
LOC: M ED 19:49
DX: K85.10 Biliary acute pancreatitis without necrosis or infection (principal); K83.09 Other cholangitis; K80.00 Calculus of gallbladder with acute cholecystitis without obstruction; Z98.84 Bariatric surgery status; Z79.899 Other long term (current) drug therapy
CPT/HCPCS: 71275; 74177; 76705; 80047; 80076; 82550; 82553; 83690; 84484; 85025; 85610; 87040; 87077; 87186; 87486; 87581; 87633; 87798; 93005; 93041; 94760; 96365; 96367; 96375; 99285; J0131; J2270; J2405; J2543; Q9963; Q9967

== ENCOUNTER 2022-02-12 20:46 | Emergency (ER) | payer OTHER ==
[~2022-02-12] VITALS: Ht 162.6 cm; Wt 68.2 kg
[~2022-02-12 20:46] MED LIST changes: -CYMB60CA3 PO; +CYMB60CA4 PO; -PHEN30CA2 PO; +PHEN30CA21 PO
[2022-02-12 21:55] LABS: BASO % 0.2 % (0.0-1.0); HEMATOCRIT 40.2 % (36.0-47.0); HEMOGLOBIN 13.1 g/dl (12.0-15.5); LYMPH # 0.5 10^3/uL (1.5-5.0); LYMPH % 3.8 % (24.0-44.0); MEAN CORPUSCULAR HEMOGLOBIN 31.3 pg (27.0-33.0); MEAN CORPUSCULAR HGB CONC 32.6 g/dl (32.0-36.5); MEAN CORPUSCULAR VOLUME 95.9 fl (80.0-96.0); MONO # 0.4 10^3/uL (0.0-0.8); MONO % 3.1 % (2.0-8.0); NEUTROPHILS # 11.4 10^3/uL (1.5-8.5); NEUTROPHILS % 92.4 % (36.0-66.0); PLATELET COUNT, AUTOMATED 293 10^3/uL (150-450); RED BLOOD COUNT 4.19 10^6/uL (4.00-5.40); WHITE BLOOD COUNT 12.4 10^3/uL (4.0-10.0)
[2022-02-12] MEDS ORDERED: NS 1,000 ML IV ONE ×2 (22:25)
[2022-02-12 22:27] LABS: ALBUMIN 3.6 GM/DL (3.2-5.2); ALT/SGPT 54 U/L (12-78); BILIRUBIN,DIRECT 0.2 MG/DL (0.0-0.2); BILIRUBIN,TOTAL 0.4 MG/DL (0.2-1.0); BLOOD UREA NITROGEN 16 MG/DL (7-18); CALCIUM LEVEL 8.7 MG/DL (8.8-10.2); CARBON DIOXIDE LEVEL 23 MEQ/L (21-32); CHLORIDE LEVEL 107 MEQ/L (98-107); CREATININE FOR GFR 0.77 MG/DL (0.55-1.30); GLOMERULAR FILTRATION RATE > 60.0 (>45); GLUCOSE, FASTING 128 MG/DL (70-100); LIPASE 102 U/L (73-393); POTASSIUM SERUM 3.8 MEQ/L (3.5-5.1); SODIUM LEVEL 139 MEQ/L (136-145); TOTAL PROTEIN 7.2 GM/DL (6.4-8.2)
[2022-02-13] MEDS ORDERED: ONDA4TAB6 PO (01:19)
[2022-02-13] MEDS ORDERED: ONDANSETRON 4MG ORAL DISINTEGRATING TAB PO ONE (01:25)
[2022-02-13 01:30] VITALS: BP 137/61
== END 2022-02-13 01:30 | disposition home or self-care (01) ==
LOC: M ED 20:46
DX: K52.9 Noninfective gastroenteritis and colitis, unspecified (principal); M10.9 Gout, unspecified; M79.7 Fibromyalgia; F32.A Depression, unspecified; Z90.49 Acquired absence of other specified parts of digestive tract; Z90.710 Acquired absence of both cervix and uterus; Z98.84 Bariatric surgery status; Z79.899 Other long term (current) drug therapy

== ENCOUNTER → 2022-08-27 | Outpatient (CLI) | payer OTHER ==
[~2022-08-27] MED LIST changes: +ONDA4TAB6 PO
== END ==
LOC: M WHC 14:06
PROVIDERS: ATTEND Nurse Practitioner Adult Health
DX: Z12.31 Encounter for screening mammogram for malignant neoplasm of breast (principal)

== ENCOUNTER → 2023-05-05 | Outpatient (REF) | payer OTHER ==
[~2023-05-05] MED LIST changes: +TOPI-254 PO; -TOPI50TA9 PO
== END ==
LOC: M LAB REF 16:16
PROVIDERS: ATTEND Nurse Practitioner Adult Health
DX: Z98.84 Bariatric surgery status (principal)

== ENCOUNTER → 2023-07-08 | Outpatient (CLI) | payer OTHER | LOC: M SOG 07:54 | PROVIDERS: ATTEND Physician Assistant | DX: M25.562 Pain in left knee (principal) ==

== ENCOUNTER → 2023-09-03 | Outpatient (CLI) | payer OTHER ==
[~2023-09-03] MED LIST changes: +TOPI-21 PO; -TOPI-254 PO
== END ==
LOC: M WHC 08:37
PROVIDERS: ATTEND Nurse Practitioner Adult Health
DX: Z12.31 Encounter for screening mammogram for malignant neoplasm of breast (principal); M85.851 Other specified disorders of bone density and structure, right thigh; M85.88 Other specified disorders of bone density and structure, other site

== ENCOUNTER → 2023-11-08 | Outpatient (REF) | payer OTHER | LOC: M LAB REF 12:04 | PROVIDERS: ATTEND Nurse Practitioner Adult Health | DX: M81.0 Age-related osteoporosis without current pathological fracture (principal); Z79.899 Other long term (current) drug therapy ==

== ENCOUNTER → 2023-12-27 | Outpatient (REF) | payer OTHER | LOC: M LAB REF 16:48 | PROVIDERS: ATTEND Nurse Practitioner Adult Health | DX: Z79.899 Other long term (current) drug therapy (principal) ==

== ENCOUNTER → 2024-04-25 | Outpatient (CLI) | payer OTHER ==
[~2024-04-25] MED LIST changes: +ONDA-282 PO; -ONDA4TAB6 PO
== END ==
LOC: M WUC 11:37
PROVIDERS: ATTEND Nurse Practitioner Family
DX: M54.6 Pain in thoracic spine (principal); M54.50 Low back pain, unspecified; R30.0 Dysuria

== ENCOUNTER → 2024-05-18 | Outpatient (REF) | payer OTHER ==
[2024-05-18 19:13] LABS: IRON (FE) 125 UG/DL (50-170); PERCENT SATURATION 36.9 % (13.2-45.0); PHOSPHORUS LEVEL 3.8 MG/DL (2.4-5.1); TOTAL IRON BINDING CAPACITY 339 UG/DL (250-425)
[2024-05-18 19:16] LABS: VITAMIN B12 LEVEL 1239 PG/ML (211-911)
[2024-05-18 19:19] LABS: FOLATE > 24.0 NG/ML (>5.4)
== END ==
LOC: M LAB REF 16:44
PROVIDERS: ATTEND Nurse Practitioner Adult Health
DX: Z98.84 Bariatric surgery status (principal)

== ENCOUNTER → 2024-06-22 | Outpatient (REF) | payer OTHER | LOC: M LAB REF 13:49 | PROVIDERS: ATTEND Nurse Practitioner Adult Health | DX: Z79.899 Other long term (current) drug therapy (principal) ==

== ENCOUNTER → 2025-03-01 | Outpatient (REF) | payer MEDICARE ==
[~2025-03-01] MED LIST changes: -AMBI5TAB PO; +ZOLP-532 PO
== END ==
LOC: M LAB REF 14:42
PROVIDERS: ATTEND Internal Medicine
DX: Z01.818 Encounter for other preprocedural examination (principal); M54.07 Panniculitis affecting regions of neck and back, lumbosacral region

== ENCOUNTER 2025-03-20 13:13 | Observation (INO) | payer MEDICARE ==
[~2025-03-20] VITALS: Ht 162.6 cm; Wt 71.8 kg
[~2025-03-20 13:13] MED LIST changes: +ALBU8.5H INH; +ALPR0.25 PO; +CALC600T61 PO; +DENO60SY2 INJ; +ESZO1TAB6 PO; +FLON1SPR NARES; +LIDOCAINE 2% 100 MG/5 ML SDV (FOR ANES.) As Ordered ONE; +MIDAZOLAM INJ 2 MG/2 ML VIAL As Ordered ONE; +MULTTAB61 PO; +ONDANSETRON 4MG 2ML VIAL As Ordered ONE; +ROCURONIUM BROMIDE 50MG/5ML VIAL As Ordered ONE; +SLOWTAB2 PO; +SUGAMMADEX SODIUM 500 MG/5 ML VIAL As Ordered ONE; +VITA500T17 PO; +dexAMETHasone 4 MG/ML 1 ML VIAL As Ordered ONE
[2025-03-20] MEDS ORDERED: NYST15PO3 TOP (14:02)
[2025-03-20] MEDS ORDERED: CALC250T PO (14:02)
[2025-03-20] MEDS ORDERED: HOME MED LIST COMPLETE! XX SCH (14:05)
[2025-03-20] MEDS ORDERED: SCOPOLAMINE 1MG TRANSDERMAL PATCH TOP SCH (14:25)
[2025-03-20] MEDS: SCOPOLAMINE 1MG TRANSDERMAL PATCH TOP ONE (14:39)
[2025-03-20] MEDS: HEPARIN SOD 5000 UNITS/ML 1 ML VIAL/SYRINGE SQ ONE (15:10)
[2025-03-20] MEDS: ceFAZolin SOD 2 GM IV ONCE IV ONE (15:12)
[2025-03-20] MEDS ORDERED: ACETAMINOPHEN 1000MG/100ML IV BAG As Ordered ONE (15:49)
[2025-03-20] MEDS ORDERED: HYDROmorphone HCL 2 MG/ML 1 ML VIAL As Ordered ONE (16:14)
[2025-03-20] MEDS: GENTAMICIN SULF 80 MG/2 ML VIAL As Ordered ONE (16:22)
[2025-03-20] MEDS ORDERED: ONDANSETRON 4MG 2ML VIAL IV PRN ×2 (17:55→18:10)
[2025-03-20] MEDS: LR 1,000 ML IV SCH ×2 (18:10→19:43)
[2025-03-20] MEDS ORDERED: ACETAMINOPHEN 325 MG TAB PO PRN (18:10)
[2025-03-20 18:53] VITALS: BP 143/78; TEMP 97; O2SAT 91
[2025-03-20] MEDS: CETIRIZINE 10 MG TAB PO SCH (19:53)
[2025-03-20] MEDS: TOPIRAMATE 25 MG TAB PO SCH (19:53)
[2025-03-20 20:17] VITALS: BP 124/61; TEMP 96.8; O2SAT 99
[2025-03-20 21:18] VITALS: BP 121/61; TEMP 97; O2SAT 90
[2025-03-20 22:18] VITALS: BP 118/61; TEMP 97.2; O2SAT 92
[2025-03-20] MEDS: ceFAZolin SODIUM 2 GM in DEXTROSE 5% (D5W) ADV/MINI-BAG 50 ML IV SCH (22:59)
[2025-03-20] MEDS: traMADol 50 MG TAB PO PRN (23:01)
[2025-03-20] MEDS: ALPRAZolam 0.25 MG TAB PO PRN (23:06)
[2025-03-20 23:19] VITALS: BP_SYST 108; BP_SYST 136; BP_DIAS 109; BP_DIAS 53; TEMP 97.5; O2SAT 98
[2025-03-21 00:19] VITALS: BP 106/56; TEMP 97.6; O2SAT 92
[2025-03-21 03:15] VITALS: BP 133/60; TEMP 97; O2SAT 98
[2025-03-21] MEDS: PERCOCET 5MG/325MG TAB PO PRN (04:46)
[2025-03-21 08:00] VITALS: BP 103/67; TEMP 97; O2SAT 96
[2025-03-21 08:44] LABS: PLATELET COUNT, AUTOMATED 226 10^3/uL (150-450)
[2025-03-21] MEDS: CYANOCOBALAMIN 500 MCG TAB PO SCH (08:54)
[2025-03-21] MEDS: FLUTICASONE PROPIONATE 0.05% NASAL SPRAY 16 GM NARES SCH (08:55)
[2025-03-21] MEDS ORDERED: TRAM50TA2 PO (10:07)
[2025-03-21] MEDS ORDERED: PERCOCET PO (11:32)
== END 2025-03-21 12:10 | disposition home or self-care (01) ==
LOC: M SDC 13:13 → M RR INP 13:14 → M MS5PR 18:53
PROVIDERS: ADMIT Plastic Surgery Surgery of the Hand; ATTEND Plastic Surgery Surgery of the Hand
DX: M54.00 Panniculitis affecting regions of neck and back, site unspecified (principal); R21 Rash and other nonspecific skin eruption; Z98.84 Bariatric surgery status; Z91.048 Other nonmedicinal substance allergy status; Z88.1 Allergy status to other antibiotic agents; Z88.8 Allergy status to other drugs, medicaments and biological substances; Z79.899 Other long term (current) drug therapy
CPT/HCPCS: 15830; 15847; 36415; 85027; 88300; 96374; 96376; G0378; J0131; J0665; J0666; J0690; J1100; J1171; J1580; J2250; J2405; J3010

== ENCOUNTER → 2025-06-04 | Outpatient (REF) | payer MEDICARE ==
[~2025-06-04] MED LIST changes: +CALC250T PO; -LIDOCAINE 2% 100 MG/5 ML SDV (FOR ANES.) As Ordered ONE; -MIDAZOLAM INJ 2 MG/2 ML VIAL As Ordered ONE; +NYST15PO3 TOP; -ONDANSETRON 4MG 2ML VIAL As Ordered ONE; +OXYC1TAB23 PO; +PERCOCET PO; -ROCURONIUM BROMIDE 50MG/5ML VIAL As Ordered ONE; +SLOW1TAB3 PO; -SLOWTAB2 PO; -SUGAMMADEX SODIUM 500 MG/5 ML VIAL As Ordered ONE; +TRAM50TA2 PO; -VITA500T17 PO; +VITA500T8 PO; -dexAMETHasone 4 MG/ML 1 ML VIAL As Ordered ONE
[2025-06-04 14:47] LABS: PHOSPHORUS LEVEL 3.7 MG/DL (2.4-5.1); VITAMIN B12 LEVEL 969.0 PG/ML (211-911)
== END ==
LOC: M LAB REF 12:18
PROVIDERS: ATTEND Nurse Practitioner Adult Health
DX: Z79.899 Other long term (current) drug therapy (principal)

== ENCOUNTER 2025-07-23 13:20 | Emergency (ER) | payer MEDICARE, OTHER ==
[~2025-07-23] VITALS: Ht 162.6 cm; Wt 68.1 kg
[2025-07-23 13:57] LABS: BASO # 0.0 10^3/uL (0.0-0.2); BASO % 0.5 % (0.0-1.0); EOS # 0.1 10^3/uL (0.0-0.5); EOS % 1.3 % (0.0-3.0); LYMPH # 1.8 10^3/uL (1.5-5.0); LYMPH % 32.5 % (24.0-44.0); MONO # 0.5 10^3/uL (0.0-0.8); MONO % 9.7 % (2.0-8.0); NEUTROPHILS # 3.1 10^3/uL (1.5-8.5); NEUTROPHILS % 55.8 % (36.0-66.0); PLATELET COUNT, AUTOMATED 383 10^3/uL (150-450)
[2025-07-23 14:25] LABS: CPK CREATINE PHOSPHOKINASE 28 U/L (34-145)
[2025-07-23 14:26] LABS: CALCIUM LEVEL 9.4 MG/DL (8.3-10.6); CARBON DIOXIDE LEVEL 27 MMOL/L (20-31); CHLORIDE LEVEL 107 MMOL/L (98-107); CK-MB VALUE MASS < 1.0 NG/ML (<3.6); CREATININE FOR GFR 0.67 MG/DL (0.55-1.30); GLOMERULAR FILTRATION RATE > 90.0 (>45); POTASSIUM SERUM 4.0 MMOL/L (3.5-5.1); SODIUM LEVEL 143 MMOL/L (136-145)
[2025-07-23] MEDS: NS (Normal Saline) 0.9% 1,000 ML IV ONE (18:17)
[2025-07-23] MEDS: KETOROLAC 30 MG/ML 1 ML VIAL IV ONE (18:17)
[2025-07-23 19:00] LABS: CK-MB VALUE MASS < 1.0 NG/ML (<3.6)
[2025-07-23] MEDS ORDERED: ISOVUE-370 76% 100 ML VIAL As Ordered ONE (19:09)
[2025-07-23 19:18] LABS: CPK CREATINE PHOSPHOKINASE 31 U/L (34-145)
[2025-07-23] MEDS ORDERED: TRAM50TA2 PO (20:16)
[2025-07-23 20:30] VITALS: BP 176/83; O2SAT 100
[2025-07-23] MEDS: dexAMETHasone 4 MG/ML 1 ML VIAL IV ONE (20:30)
[2025-07-23 20:46] VITALS: TEMP 97.5
== END 2025-07-23 20:58 | disposition home or self-care (01) ==
LOC: M ED 13:20
DX: S23.9XXA Sprain of unspecified parts of thorax, initial encounter (principal); V89.2XXA Person injured in unspecified motor-vehicle accident, traffic, initial encounter; Y92.9 Unspecified place or not applicable; Y93.9 Activity, unspecified; Y99.9 Unspecified external cause status; J45.909 Unspecified asthma, uncomplicated; Z79.899 Other long term (current) drug therapy; Z88.6 Allergy status to analgesic agent; Z88.1 Allergy status to other antibiotic agents; Z88.8 Allergy status to other drugs, medicaments and biological substances; Z91.89 Other specified personal risk factors, not elsewhere classified
CPT/HCPCS: 71046; 71260; 80048; 82550; 82553; 84484; 85025; 93005; 96374; 96375; 99284; J1100; J1885; Q9967

== ENCOUNTER → 2025-08-20 | Outpatient (CLI) | payer OTHER, MEDICARE | LOC: M RAD 14:00 | DX: M25.511 Pain in right shoulder (principal); M54.2 Cervicalgia; R51.9 Headache, unspecified ==